=== PATIENT | female | born 1985 | race Caucasian/White ===

== ENCOUNTER 2016-07-04 14:40 | Emergency (ER) | payer BC ==
[2016-07-04 15:53] VITALS: BP 105/68
--- NOTE | 2016-07-04 16:49 | UC ---
Back Pain HPI - HPI Summary HPI Summary: recurrent low back pain. Usually goes away in a few days, this time present for a week or more. Goes into both hips. Worse with bending forward, holding 1 year old on hip. Takes MOtrin, no help. Grandmother with arthritis, she doesn't know any details. - History of Current Complaint Chief Complaint: UCBackPain Stated Complaint: BILATERAL HIP AND LOW BACK PAIN Time Seen by Provider: 07/04/16 16:34 Hx Obtained From: Patient Hx Last Menstrual Period: 06/24/15 Onset/Duration: Gradual Onset, Lasting Weeks - 1 Timing: Constant Severity Initially: Mild Severity Currently: Moderate Back Pain: Is Diffuse - lumbar, into both hips Character: Dull, Aching, Throbbing, Stiffness Aggravating: Movement, Bending, Cough Alleviating: Rest, Position Associated Signs And Symptoms: Positive: Pain with Weight Bearing. Negative: Swelling, Redness, Bruising, Fever, Weakness, Numbness, Tingling, Abdominal Pain , Flank Pain, Bladder Incontinence, Bowel Incontinence, Weight Loss - Risk Factors AAA Risk Factors: Negative TAD Risk Factors: Negative Cauda Equina Risk Factors: Negative Epidural Abscess Risk Factors: Negative - Allergies/Home Medications Allergies/Adverse Reactions: Allergies Allergy/AdvReac Type Severity Reaction Status Date / Time No Known Allergies Allergy Verified 07/04/16 15:53 PMH/Surg Hx/FS Hx/Imm Hx Previously Healthy: Yes Cardiovascular History Of: Denies: Cardiac Disorders - Surgical History Surgical History: None Surgery Procedure, Year, and Place: DENIES - Family History Known Family History: Positive: None Negative: Cardiac Disease, Hypertension, Diabetes - Social History Occupation: Unemployed Lives: With Family Alcohol Use: Occasionally Alcohol Amount: 2 times a month Substance Use Type: None Smoking Status (MU): Never Smoked Tobacco Review of Systems Constitutional: Negative Skin: Negative Eyes: Negative ENT: Negative Respiratory: Negative Cardiovascular: Negative Gastrointestinal: Negative Genitourinary: Negative Motor: Negative Neurovascular: Negative Musculoskeletal: Arthralgia, Decreased ROM, Myalgia Neurological: Negative Psychological: Negative All Other Systems Reviewed And Are Negative: Yes Physical Exam Triage Information Reviewed: Yes Appearance: Well-Appearing, No Pain Distress, Well-Nourished, Thin Vital Signs: Initial Vital Signs Temp 99.7 F 07/04/16 15:44 Pulse 78 07/04/16 15:44 Resp 16 07/04/16 15:44 BP 105/68 07/04/16 15:44 Pulse Ox 99 07/04/16 15:44 Vital Signs Reviewed: Yes Eye Exam: Normal Neck exam: Normal Neck: Positive: Supple, Nontender Respiratory Exam: Normal Cardiovascular Exam: Normal Musculoskeletal Exam: Other - no surface tenderness, redness, or swelling on back. Limited ROM due to pain, hurts to bend forward, twist Neurological Exam: Normal Neurological: Positive: Alert, Muscle Tone Normal Psychological Exam: Normal Diagnostics - Laboratory Diagnostic Studies Completed/Ordered: Lumbar spine xray: neg Back Pain Course/Dx - Differential Dx/Diagnosis Differential Diagnosis/HQI/PQRI: Arthritis, Fracture, Herniated Disc, Strain Provider Diagnoses: chronic low back pain Discharge - Discharge Plan Condition: Stable Disposition: HOME Prescriptions: Cyclobenzaprine TAB* [Flexeril TAB*] 10 mg PO TID PRN #30 tab PRN Reason: back pain Meloxicam [Mobic] 7.5 mg PO BID PRN #60 tab PRN Reason: back pain Patient Education Materials: Chronic Back Pain (ED), Lower Back Exercises (ED) Referrals: CHRIS Cerna [Primary Care Provider] - Deuce SILVA,Derrek Warren [Doctor of Chiropractic] -
--- NOTE | 2016-07-04 17:45 | RAD ---
Indication: Intermittent low back pain for one month. Bilateral radiation to the hips. No preceding injury. Comparison: None. Technique: AP, lateral, and oblique views lumbar sacral spine. Report: Alignment is anatomic. No cortical disruption or trabecular impaction to indicate a vertebral body fracture. Oblique views without evidence for spondylolysis. Unremarkable disc spaces from the lower thoracic spine through L4-L5. Narrow L5-S1 disc space which may be congenital given absence of secondary findings such as osteophytosis or reactive endplate sclerosis to favor degenerative spondylosis. Unremarkable paraspinal soft tissue contours. Unremarkable soft tissue contours. IMPRESSION: Congenitally narrow L5-S1 disc space versus degenerative spondylosis.
== END 2016-07-04 17:22 | disposition home or self-care (01) ==
LOC: UCCORT 14:40
DX: M54.5 Low back pain (principal)
CPT/HCPCS: 72110; 99212; G0463

== ENCOUNTER 2017-03-13 18:57 | Emergency (ER) | payer BC ==
[2017-03-13 19:33] VITALS: BP 106/55
--- NOTE | 2017-03-16 22:41 | UC ---
HPI Febrile Illness - HPI Summary HPI Summary: 31 YEAR OLD FEMALE PRESENTS WITH POST FEVER AND BLEEDING. I WILL SEND HER TO THE ER. - History of Current Complaint Chief Complaint: UCGeneralIllness Time Seen by Provider: 03/13/17 19:43 Hx Obtained From: Patient Hx Last Menstrual Period: unknown, gave 2 weeks ago Onset/Duration: Started Days Ago Timing: Constant Initial Severity: Moderate Current Severity: Moderate Pain Scale Used: 0-10 Numeric - 7 - Allergy/Home Medications Allergies/Adverse Reactions: Allergies Allergy/AdvReac Type Severity Reaction Status Date / Time No Known Allergies Allergy Verified 03/13/17 19:32 Home Medications: Home Medications Iron-Vitamin C [Fe C Tab 100-250 mg] 1 tab PO BID 03/13/17 [History Confirmed ] PMH/Surg Hx/FS Hx/Imm Hx - Surgical History Surgical History: None Surgery Procedure, Year, and Place: DENIES - Family History Known Family History: Positive: None Negative: Cardiac Disease, Hypertension, Diabetes - Social History Alcohol Use: None Alcohol Amount: 2 times a month Substance Use Type: None Smoking Status (MU): Never Smoked Tobacco - Immunization History Most Recent Influenza Vaccination: no Review of Systems Constitutional: Fever, Chills, Fatigue Skin: Negative Eyes: Negative ENT: Negative Respiratory: Negative Cardiovascular: Negative Gastrointestinal: Negative Genitourinary: Abnormal Bleeding Motor: Negative Neurovascular: Negative Musculoskeletal: Negative Neurological: Negative Psychological: Negative All Other Systems Reviewed And Are Negative: Yes Physical Exam Triage Information Reviewed: Yes Vital Signs: Initial Vital Signs Temp 37.1 C 03/13/17 19:27 Pulse 95 03/13/17 19:27 Resp 15 03/13/17 19:27 BP 106/55 03/13/17 19:27 Pulse Ox 100 03/13/17 19:27 Eye Exam: Normal ENT Exam: Normal Dental Exam: Normal Neck exam: Normal Neck: Positive: 1 Respiratory Exam: Normal Cardiovascular Exam: Normal Abdominal Exam: Normal Musculoskeletal Exam: Normal Neurological Exam: Normal Psychological Exam: Normal Skin Exam: Normal Course/Dx - Diagnoses Clinic Provider Diagnoses: POST FEVER Discharge - Discharge Plan Condition: Stable Disposition: HOME Patient Education Materials: Fever in Adults (ED) Referrals: CHRIS Cerna [Primary Care Provider] - Additional Instructions: PATIENT SUGGESTED TO GO TO THE ER TO RULE OUT FEVER
== END 2017-03-13 20:12 | disposition home or self-care (01) ==
LOC: UCCORT 18:57
DX: O86.4 Pyrexia of unknown origin following delivery (principal)
CPT/HCPCS: 99212; G0463

== ENCOUNTER 2018-08-28 10:32 | Emergency (ER) | payer BC, OTHER ==
[2018-08-28 12:41] VITALS: BP 110/69
--- NOTE | 2018-08-28 13:17 | UC ---
General HPI - HPI Summary HPI Summary: Here with cough, congestion/runny nose, sore throat and subjective fevers. Last two days it has gotten worse - subjective fevers started. No N/V/D. No rash. No abdominal pain. Good PO. States she went through an entire bottle of mucinex with no relief. Meds: Reviewed - History of Current Complaint Chief Complaint: UCRespiratory Stated Complaint: FEVER,CONGESTION,SORE THROAT Time Seen by Provider: 08/28/18 12:52 Hx Last Menstrual Period: 08/13/18 Pain Intensity: 0 - Allergy/Home Medications Allergies/Adverse Reactions: Allergies Allergy/AdvReac Type Severity Reaction Status Date / Time No Known Allergies Allergy Verified 08/28/18 12:36 Home Medications: Home Medications [id number] Es (Nf) [Excedrin Extra Strength 250-250-65 mg (NF)] 2 tab PO Q6H PRN 08/28/18 [History Confirmed 08/28/18] PMH/Surg Hx/FS Hx/Imm Hx Previously Healthy: Yes - Surgical History Surgical History: None Surgery Procedure, Year, and Place: DENIES - Family History Known Family History: Positive: None Negative: Cardiac Disease, Hypertension, Diabetes - Social History Alcohol Use: None Alcohol Amount: 2 times a month Substance Use Type: None Smoking Status (MU): Never Smoked Tobacco - Immunization History Most Recent Influenza Vaccination: no Review of Systems All Other Systems Reviewed And Are Negative: Yes Constitutional: Positive: Fever ENT: Positive: Sore Throat, Nasal Discharge, Sinus Congestion Respiratory: Positive: Cough Physical Exam Triage Information Reviewed: Yes Appearance: Well-Appearing Vital Signs: Initial Vital Signs Temp 97.9 F 08/28/18 12:35 Pulse 66 08/28/18 12:35 Resp 18 08/28/18 12:35 BP 110/69 08/28/18 12:35 Pulse Ox 99 08/28/18 12:35 Vital Signs Reviewed: Yes ENT: Positive: Pharyngeal erythema, Nasal congestion, Nasal drainage, TMs normal Dental: Positive: Percussion Tenderness @ Neck: Positive: Supple, Enlarged Nodes @ - anterior cervical chain Respiratory: Positive: Other: - diminished breath sounds over right lung base. N W/R/R. NO increase in work of breathing Cardiovascular: Positive: RRR, No Murmur Diagnostics - Radiology CXR Radiology Interpretation Completed By: Radiologist Summary of Radiographic Findings: NO acute cardiopulmonary disease Course/Dx - Course Course Of Treatment: This is a 33 yr old with 1 week of URI symptoms worse over the past 48 hours. Assessment. Nontoxic appearing. CXR: Negative. Flu: Negative. Dx: viral syndrome. Plan. Continue supportive care and fluids. Rest, ibuprofen as needed for pain/fever. Recommend decongestant such as sudafed. Start flonase nasal spray. Recommend tessalon pearles as needed for cough. If symptoms persist or worsen, follow up with PCP or return to urgent care - Diagnoses Provider Diagnosis: Viral syndrome Discharge - Sign-Out/Discharge Documenting (check all that apply): Patient Departure All imaging exams completed and their final reports reviewed: Yes - Discharge Plan Condition: Good Disposition: HOME Prescriptions: Benzonatate CAP* [Tessalon 100 MG CAP*] 200 mg PO BID PRN #30 cap PRN Reason: Cough Fluticasone NASAL SPRAY 50MCG* [Flonase NASAL SPRAY 50MCG*] 2 spray BOTH NARES DAILY #1 btl Patient Education Materials: Viral Syndrome (ED) Forms: *Work Release Referrals: No Primary Care Phys,NOPCP [Primary Care Provider] - Additional Instructions: Continue supportive care and fluids Rest, ibuprofen as needed for pain/fever Recommend decongestant such as sudafed Start flonase nasal spray Recommend tessalon pearles as needed for cough If symptoms persist or worsen, follow up with PCP or return to urgent care - Billing Disposition and Condition Condition: GOOD Disposition: Home
[2018-08-28 13:52] LABS: Influenza A Molecular NEGATIVE (Negative); Influenza B Molecular NEGATIVE (Negative)
== END 2018-08-28 14:05 | disposition home or self-care (01) ==
LOC: UCCORT 10:32
DX: B34.9 Viral infection, unspecified (principal); R05 Cough; R09.89 Other specified symptoms and signs involving the circulatory and respiratory systems; J02.9 Acute pharyngitis, unspecified; J39.2 Other diseases of pharynx
CPT/HCPCS: 71046; 99212; G0463